=== PATIENT | female | born 1965 | race Caucasian/White ===

== ENCOUNTER → 2017-05-13 | Outpatient (CLI) | payer OTHER | LOC: RAD 02:33 | DX: Z12.31 Encounter for screening mammogram for malignant neoplasm of breast (principal) ==

== ENCOUNTER → 2020-04-03 | Outpatient (CLI) | payer OTHER | LOC: BC 08:05 | DX: Z12.31 Encounter for screening mammogram for malignant neoplasm of breast (principal) ==

== ENCOUNTER → 2021-06-05 | Outpatient (CLI) | payer BC, OTHER | LOC: RAD 13:34 | DX: Z12.31 Encounter for screening mammogram for malignant neoplasm of breast (principal) ==